=== PATIENT | female | born 1975 | race Asian ===

== ENCOUNTER 2017-03-13 13:49 | Emergency (ER) | payer OTHER ==
[2017-03-13] MEDS ORDERED: DICYCLOMINE 10 MG/ML 2 ML AMP IM STA (14:53)
[2017-03-13] MEDS ORDERED: SODIUM CHLORIDE 0.9% 1,000 ML IV STA (14:53)
[2017-03-13] MEDS ORDERED: ONDANSETRON 4 MG/2 ML VIAL IVP STA (14:53)
--- NOTE | 2017-03-13 14:56 | ED ---
General Adult HPI - General Chief complaint: Nausea/Vomiting/Diarrhea Stated complaint: vomiting/diarrhea/abdominal pain Time Seen by Provider: 03/13/17 14:40 Source: patient, RN notes reviewed Mode of arrival: ambulatory Limitations: no limitations - History of Present Illness Initial comments: 42 yo female presents to the ER with cc of nausea vomiting and diarrhea. 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 Patient states she'll have crampy spasming type pain and then it will improve. Patient states she hasn't had any fever chills with this. Patient states that he has had no other symptoms with this. Patient denies any abdominal surgeries in the past. Patient denies . Patient denies any recent fever, chills , shortness of breath, chest pain, back pain, numbness or tingling, dysuria or hematuria, constipation or diarrhea, headaches or visual changes, or any other current symptoms. - Related Data Home Medications Medication Instructions Recorded Confirmed Fexofenadine/Pseudoephedrine 1 tab PO DAILY PRN 03/13/17 03/13/17 [Brissa-D 24 Hour Tablet] Turmeric Root Extract [Turmeric] 500 mg PO DAILY 03/13/17 03/13/17 Previous Rx's Medication Instructions Recorded Dicyclomine [Bentyl] 10 mg PO TID #20 capsule 03/13/17 Ondansetron Odt [Zofran ODT] 4 mg PO Q8HR PRN #20 tab 03/13/17 Allergies Allergy/AdvReac Type Severity Reaction Status Date / Time alcohol Allergy Unknown Verified 03/13/17 14:52 Sulfa (Sulfonamide Allergy Swelling Verified 03/13/17 14:52 Antibiotics) Review of Systems ROS Statement: Those systems with pertinent positive or pertinent negative responses have been documented in the HPI. ROS Other: All systems not noted in ROS Statement are negative. Past Medical History Additional Past Medical History / Comment(s): ALLERGIC RHINITIS History of Any Multi-Drug Resistant Organisms: None Reported Past Surgical History: No Surgical Hx Reported Past Psychological History: Anxiety Smoking Status: Never smoker Past Alcohol Use History: None Reported Past Drug Use History: None Reported General Exam Limitations: no limitations General appearance: alert, in no apparent distress ENT exam: Present: normal exam, mucous membranes moist Neck exam: Present: normal inspection. Absent: tenderness, meningismus, lymphadenopathy Respiratory exam: Present: normal lung sounds bilaterally. Absent: respiratory distress, wheezes, rales, rhonchi, stridor Cardiovascular Exam: Present: regular rate, normal rhythm, normal heart sounds. Absent: systolic murmur, diastolic murmur, rubs, gallop, clicks GI/Abdominal exam: Present: soft, normal bowel sounds. Absent: distended, tenderness, guarding, rebound, rigid Neurological exam: Present: alert, oriented X3 Psychiatric exam: Present: normal affect, normal mood Skin exam: Present: warm, dry, intact, normal color. Absent: rash Course Vital Signs 03/13/17 13:53 Temperature 97.5 F L Pulse Rate 94 Respiratory 20 Rate Blood Pressure 118/70 O2 Sat by Pulse 98 Oximetry Medical Decision Making - Medical Decision Making 42-year-old female presents to the emergency department with a chief complaint of nausea vomiting and diarrhea. At this time patient's laboratory is reviewed. At this time patient's symptoms are suspicious for a gastroenteritis and she would just recommend facility where this is currently going around. At this time abdomen continues to be soft and nontender. This time we discussed we will start her on nausea meds for home and Bentyl. We discussed return parameters and follow-up and all questions. Patient stated that she understood and she plan. All questions have been answered - Lab Data Result diagrams: 03/13/17 15:25 03/13/17 15:25 Lab Results 03/13/17 03/13/17 03/13/17 Range/Units 15:25 15:25 15:25 WBC 11.6 H (3.8-10.6) k/uL RBC 4.80 (3.80-5.40) m/uL Hgb 13.3 (11.4-16.0) gm/dL Hct 41.6 (34.0-46.0) % MCV 86.7 (80.0-100.0) fL MCH 27.7 (25.0-35.0) pg MCHC 32.0 (31.0-37.0) g/dL RDW 13.6 (11.5-15.5) % Plt Count 305 (150-450) k/uL Neutrophils % 89 % Lymphocytes % 7 % Monocytes % 2 % Eosinophils % 1 % Basophils % 0 % Neutrophils # 10.3 H (1.3-7.7) k/uL Lymphocytes # 0.8 L (1.0-4.8) k/uL Monocytes # 0.3 (0-1.0) k/uL Eosinophils # 0.1 (0-0.7) k/uL Basophils # 0.0 (0-0.2) k/uL Sodium 142 (137-145) mmol/L Potassium 4.0 (3.5-5.1) mmol/L Chloride 108 H (98-107) mmol/L Carbon Dioxide 23 (22-30) mmol/L Anion Gap 11 mmol/L BUN 10 (7-17) mg/dL Creatinine 0.63 (0.52-1.04) mg/dL Est GFR (MDRD) Af Amer >60 (>60 ml/min/1.73 sqM) Est GFR (MDRD) Non-Af >60 (>60 ml/min/1.73 sqM) Glucose 92 (74-99) mg/dL Calcium 9.2 (8.4-10.2) mg/dL Total Bilirubin 0.5 (0.2-1.3) mg/dL AST 22 (14-36) U/L ALT 36 (9-52) U/L Alkaline Phosphatase 77 (38-126) U/L Total Protein 7.3 (6.3-8.2) g/dL Albumin 4.4 (3.5-5.0) g/dL Amylase 59 (30-110) U/L Lipase 45 (23-300) U/L Urine Color Urine Appearance (Clear) Urine pH (5.0-8.0) Ur Specific [place] (1.001-1.035) Urine Protein (Negative) Urine Glucose (UA) (Negative) Urine Ketones (Negative) Urine Blood (Negative) Urine Nitrite (Negative) Urine Bilirubin (Negative) Urine Urobilinogen (<2.0) mg/dL Ur Leukocyte Esterase (Negative) Urine RBC (0-5) /hpf Urine WBC (0-5) /hpf Ur Squamous Epith Cells (0-4) /hpf Urine Mucus (None) /hpf Urine HCG, Qual Not Detected (Not Detectd) 03/13/17 Range/Units 15:25 WBC (3.8-10.6) k/uL RBC (3.80-5.40) m/uL Hgb (11.4-16.0) gm/dL Hct (34.0-46.0) % MCV (80.0-100.0) fL MCH (25.0-35.0) pg MCHC (31.0-37.0) g/dL RDW (11.5-15.5) % Plt Count (150-450) k/uL Neutrophils % % Lymphocytes % % Monocytes % % Eosinophils % % Basophils % % Neutrophils # (1.3-7.7) k/uL Lymphocytes # (1.0-4.8) k/uL Monocytes # (0-1.0) k/uL Eosinophils # (0-0.7) k/uL Basophils # (0-0.2) k/uL Sodium (137-145) mmol/L Potassium (3.5-5.1) mmol/L Chloride (98-107) mmol/L Carbon Dioxide (22-30) mmol/L Anion Gap mmol/L BUN (7-17) mg/dL Creatinine (0.52-1.04) mg/dL Est GFR (MDRD) Af Amer (>60 ml/min/1.73 sqM) Est GFR (MDRD) Non-Af (>60 ml/min/1.73 sqM) Glucose (74-99) mg/dL Calcium (8.4-10.2) mg/dL Total Bilirubin (0.2-1.3) mg/dL AST (14-36) U/L ALT (9-52) U/L Alkaline Phosphatase (38-126) U/L Total Protein (6.3-8.2) g/dL Albumin (3.5-5.0) g/dL Amylase (30-110) U/L Lipase (23-300) U/L Urine Color Yellow Urine Appearance Clear (Clear) Urine pH 6.0 (5.0-8.0) Ur Specific [place] 1.024 (1.001-1.035) Urine Protein Trace H (Negative) Urine Glucose (UA) Negative (Negative) Urine Ketones Trace H (Negative) Urine Blood Trace H (Negative) Urine Nitrite Negative (Negative) Urine Bilirubin Negative (Negative) Urine Urobilinogen <2.0 (<2.0) mg/dL Ur Leukocyte Esterase Negative (Negative) Urine RBC 4 (0-5) /hpf Urine WBC 1 (0-5) /hpf Ur Squamous Epith Cells 14 H (0-4) /hpf Urine Mucus Many H (None) /hpf Urine HCG, Qual (Not Detectd) Disposition Clinical Impression: Nausea & vomiting, Diarrhea Disposition: HOME SELF-CARE Condition: Stable Instructions: Acute Nausea and Vomiting (ED) Additional Instructions: Please use medication as discussed. Please follow up with family doctor if symptoms have not improved over the next two days. Please return to the emergency room if your symptoms increase or worsen or for any other concerns. Prescriptions: Dicyclomine [Bentyl] 10 mg PO TID #20 capsule Ondansetron Odt [Zofran ODT] 4 mg PO Q8HR PRN #20 tab PRN Reason: Nausea Referrals: Sumit Rios MD [Primary Care Provider] - 1-2 days Time of Disposition: 16:47
[2017-03-13 15:44] LABS: Basophils % (A) 0 %; Eosinophils # (A) 0.1 k/uL (0-0.7); Eosinophils % (A) 1 %; HCT 41.6 % (34.0-46.0); HGB 13.3 gm/dL (11.4-16.0); Lymphocytes # (A) 0.8 k/uL (1.0-4.8); Lymphocytes % (A) 7 %; MCH 27.7 pg (25.0-35.0); MCV 86.7 fL (80.0-100.0); Mean Platelet Volume 6.8; Monocytes # (A) 0.3 k/uL (0-1.0); Monocytes % (A) 2 %; Neutrophils # (A) 10.3 k/uL (1.3-7.7); Neutrophils % (A) 89 %; Platelet Count 305 k/uL (150-450); RDW 13.6 % (11.5-15.5); WBC 11.6 k/uL (3.8-10.6)
[2017-03-13 15:48] LABS: Appearance,Urine Clear (Clear); Bilirubin,Urine Negative (Negative); Blood,Urine Trace (Negative); Color,Urine Yellow; Glucose,Urine (UA) Negative (Negative); Ketones,Urine Trace (Negative); Leukocyte Esterase,Urine Negative (Negative); Mucus,Urine Many /hpf; Nitrite,Urine Negative (Negative); Protein,Urine Trace (Negative); RBC,Urine 4 /hpf (0-5); Specific Gravity,Urine 1.024 (1.001-1.035); Squamous Epithelial Cell,Urine 14 /hpf (0-4); Urobilinogen,Urine <2.0 mg/dL (<2.0); WBC,Urine 1 /hpf (0-5)
[2017-03-13 15:58] LABS: ALT 36 U/L (9-52); AST 22 U/L (14-36); Albumin 4.4 g/dL (3.5-5.0); Alkaline Phosphatase 77 U/L (38-126); Amylase 59 U/L (30-110); Anion Gap 11 mmol/L; Blood Urea Nitrogen 10 mg/dL (7-17); Calcium 9.2 mg/dL (8.4-10.2); Carbon Dioxide 23 mmol/L (22-30); Chloride 108 mmol/L (98-107); Glucose 92 mg/dL (74-99); Lipase 45 U/L (23-300); Sodium 142 mmol/L (137-145); Total Bilirubin 0.5 mg/dL (0.2-1.3); Total Protein 7.3 g/dL (6.3-8.2)
[2017-03-13 17:02] VITALS: BP 124/70; PULSE 91; RESP 16; TEMP 97.8
== END 2017-03-13 17:46 | disposition home or self-care (01) ==
LOC: EC 13:49
DX: R11.2 Nausea with vomiting, unspecified (principal); R19.7 Diarrhea, unspecified; Z79.899 Other long term (current) drug therapy; Z88.2 Allergy status to sulfonamides; Z91.09 Other allergy status, other than to drugs and biological substances
CPT/HCPCS: 36415; 80053; 82150; 83690; 85025; 81001; 81025; 99284; 96374; 96361; 96372; J0500; J2405

== ENCOUNTER → 2017-12-26 | Outpatient (CLI) | payer OTHER ==
--- NOTE | 2017-12-26 15:25 | US ---
EXAMINATION TYPE: US thyroid st tissue head/neck DATE OF EXAM: 12/26/2017 COMPARISON: NONE CLINICAL HISTORY: E04.9 goiter. GLAND SIZE: Right Lobe: 5.4 X 1.0 X 1.2 cm Overall Parenchyma: homogenous Left Lobe 5.1 X 0.9 X 1.5 cm Overall Parenchyma: homogeneous Isthmus Thickness: 0.1 cm NODULES RIGHT: # of nodules measured on right: 0 LEFT: # of nodules measured on left: 0 ISTHMUS: # of nodules measured in the isthmus: 0 Bilateral neck scanned, no evidence of lymphadenopathy. Parathyroid area scanned, no obvious abnormal ity seen by ultrasound. Homogeneous normal-sized thyroid without discrete nodule identified on images saved. IMPRESSION: Unremarkable study.
== END | disposition home or self-care (01) ==
LOC: RADUSWWP 14:49
PROVIDERS: ATTEND Family Medicine
DX: E04.9 Nontoxic goiter, unspecified (principal)
CPT/HCPCS: 76536

== ENCOUNTER 2018-01-22 01:46 | Observation (INO) | payer OTHER ==
[2018-01-22] MEDS ORDERED: SODIUM CHLORIDE 0.9% 1,000 ML IV STA (02:04)
--- NOTE | 2018-01-22 02:09 | ED ---
Arrhythmia/Palpitations HPI - General Chief Complaint: Arrhythmia/Palpitations Stated Complaint: Poss Allergic Reaction Time Seen by Provider: 01/22/18 01:54 Source: patient Mode of arrival: ambulatory Limitations: no limitations - History of Present Illness Initial Comments: Ellen is a 43-year-old female with no significant medical history who presents to the emergency department today for evaluation of palpitations. Patient reports she is currently taking Levaquin for a dental infection, she took her sixth dose this evening before bed. Patient reports she was sleeping comfortably when she was woken suddenly around 1 AM with racing heart. Patient reports she feels as though her heart is can of beat out of her chest. Patient reports that when her heart began racing she did feel somewhat tingly all over her body. She denies any shortness of breath, chest pain, nausea, vomiting or any associated symptoms. Patient reports she's never spirits anything like this in the past. She has no known cardiac history. Patient doesn't take any supplements, she denies any recreational drug use, she doesn't drink alcohol, She does occasionally take sinus medication gaining pseudoephedrine however she has not had any in multiple days. - Related Data Home Medications Medication Instructions Recorded Confirmed Fexofenadine/Pseudoephedrine 1 tab PO DAILY PRN 03/13/17 01/22/18 [Brissa-D 24 Hour Tablet] Turmeric Root Extract [Turmeric] 500 mg PO DAILY 03/13/17 01/22/18 Allergies Allergy/AdvReac Type Severity Reaction Status Date / Time alcohol Allergy Unknown Verified 01/22/18 01:51 Sulfa (Sulfonamide Allergy Swelling Verified 01/22/18 01:51 Antibiotics) Review of Systems ROS Statement: Those systems with pertinent positive or pertinent negative responses have been documented in the HPI. ROS Other: All systems not noted in ROS Statement are negative. Past Medical History Additional Past Medical History / Comment(s): ALLERGIC RHINITIS History of Any Multi-Drug Resistant Organisms: None Reported Past Surgical History: No Surgical Hx Reported Past Psychological History: Anxiety Smoking Status: Never smoker Past Alcohol Use History: None Reported Past Drug Use History: None Reported General Exam - General Exam Comments Initial Comments: GENERAL: Patient is well-developed and well-nourished. Patient is nontoxic and well- hydrated and is in no distress. HENT: Normocephalic, Atraumatic. Neck is soft and supple. No significant lymphadenopathy is noted. Oropharynx is clear. Moist mucous membranes. Neck has full range of motion without eliciting any pain. EYES: The sclera were anicteric and conjunctiva were pink and moist. Extraocular movements were intact and pupils were equal round and reactive to light. Eyelids were unremarkable. PULMONARY: Unlabored respirations. Good breath sounds bilaterally. No audible rales rhonchi or wheezing was noted. CARDIOVASCULAR: There is a regular rate and rhythm without any murmurs gallops or rubs. ABDOMEN: Soft and nontender with normal bowel sounds. SKIN: Skin is clear with no lesions or rashes and otherwise unremarkable. NEUROLOGIC: Patient is alert and oriented x3. Cranial nerves II through XII are grossly intact. Motor and sensory are also intact. Normal speech, volume and content. Symmetrical smile. MUSCULOSKELETAL: Normal extremities with adequate strength and full range of motion. No lower extremity swelling or edema. No calf tenderness. LYMPHATICS: No significant lymphadenopathy is noted PSYCHIATRIC: Normal psychiatric evaluation. Limitations: no limitations Limitations: no limitations Course Vital Signs 01/22/18 01:47 Temperature 98.4 F Pulse Rate 100 Respiratory 22 Rate Blood Pressure 147/103 O2 Sat by Pulse 99 Oximetry EKG Findings - EKG Comments: EKG Findings:: Kathrin EKG obtained at 1:59 AM, rate is 98, rhythm is sinus, normal axis, normal intervals, ND 132, QRS 90, QTc 459. There are no acute ST elevations or depressions no evidence of acute ischemia or infarction. Repeat EKG was obtained as the patient was having tachycardia on the monitor with a heart rate of 140, however by the time the EKG was obtained heart rate had improved to 94. This EKG was obtained at 3:44 AM, rate was again sinus with PVCs, ND remained 132, QRS 98, QTC 465, again no significant ST elevations or depressions no evidence of acute ischemia or infarction. Medical Decision Making - Medical Decision Making Patient was seen and evaluated, history was obtained from the patient Severity well-appearing 43-year-old female with palpitations initial EKG is sinus rhythm, labs and EKG were ordered Labs reveal an elevated d-dimer level, CT pulmonary embolism study was ordered Labs also have an elevated TSH suggestive of hypothyroid which is not consistent with tachydysrhythmia Patient resting comfortably in bed, nearly nodding off when she was noted to become tachycardic with a heart rate of 134-141 on the monitor Repeat EKG was obtained, by the time the EKG was obtained her heart rate had decreased back down to 94 did have frequent PVCs Patient remained comfortably resting in her bed when she had another episode of tachycardia with a heart rate in the 140s which was observed on the monitor Patient care was discussed with Dr. king who recommends patient be started on low-dose beta angeli and admitted to the hospital for cardiac observation patient was agreeable to this Patient care was discussed with Dr. Johnson who accepts the admission with consult to cardiology - Lab Data Result diagrams: 01/22/18 02:10 01/22/18 02:10 Lab Results 01/22/18 01/22/18 01/22/18 Range/Units 02:10 02:10 02:10 WBC 10.8 H (3.8-10.6) k/uL RBC 4.98 (3.80-5.40) m/uL Hgb 13.5 (11.4-16.0) gm/dL Hct 41.8 (34.0-46.0) % MCV 83.9 (80.0-100.0) fL MCH 27.2 (25.0-35.0) pg MCHC 32.4 (31.0-37.0) g/dL RDW 12.6 (11.5-15.5) % Plt Count 353 (150-450) k/uL Neutrophils % 62 % Lymphocytes % 29 % Monocytes % 4 % Eosinophils % 3 % Basophils % 0 % Neutrophils # 6.7 (1.3-7.7) k/uL Lymphocytes # 3.1 (1.0-4.8) k/uL Monocytes # 0.5 (0-1.0) k/uL Eosinophils # 0.3 (0-0.7) k/uL Basophils # 0.0 (0-0.2) k/uL PT (9.0-12.0) sec INR (<1.2) APTT (22.0-30.0) sec D-Dimer 0.77 H (<0.60) mg/L FEU Sodium 139 (137-145) mmol/L Potassium 3.7 (3.5-5.1) mmol/L Chloride 106 (98-107) mmol/L Carbon Dioxide 22 (22-30) mmol/L Anion Gap 11 mmol/L BUN 16 (7-17) mg/dL Creatinine 0.81 (0.52-1.04) mg/dL Est GFR (CKD-EPI)AfAm >90 (>60 ml/min/1.73 sqM) Est GFR (CKD-EPI)NonAf >90 (>60 ml/min/1.73 sqM) Glucose 110 H (74-99) mg/dL Calcium 10.6 H (8.4-10.2) mg/dL Magnesium 2.1 (1.6-2.3) mg/dL Total Bilirubin 0.3 (0.2-1.3) mg/dL AST 22 (14-36) U/L ALT 26 (9-52) U/L Alkaline Phosphatase 64 (38-126) U/L Troponin I (0.000-0.034) ng/mL Total Protein 7.5 (6.3-8.2) g/dL Albumin 4.5 (3.5-5.0) g/dL TSH 4.860 H (0.465-4.680) mIU/L 01/22/18 01/22/18 01/22/18 Range/Units 02:10 02:10 02:10 WBC (3.8-10.6) k/uL RBC (3.80-5.40) m/uL Hgb (11.4-16.0) gm/dL Hct (34.0-46.0) % MCV (80.0-100.0) fL MCH (25.0-35.0) pg MCHC (31.0-37.0) g/dL RDW (11.5-15.5) % Plt Count (150-450) k/uL Neutrophils % % Lymphocytes % % Monocytes % % Eosinophils % % Basophils % % Neutrophils # (1.3-7.7) k/uL Lymphocytes # (1.0-4.8) k/uL Monocytes # (0-1.0) k/uL Eosinophils # (0-0.7) k/uL Basophils # (0-0.2) k/uL PT 9.6 (9.0-12.0) sec INR 1.0 (<1.2) APTT 24.3 (22.0-30.0) sec D-Dimer (<0.60) mg/L FEU Sodium (137-145) mmol/L Potassium (3.5-5.1) mmol/L Chloride (98-107) mmol/L Carbon Dioxide (22-30) mmol/L Anion Gap mmol/L BUN (7-17) mg/dL Creatinine (0.52-1.04) mg/dL Est GFR (CKD-EPI)AfAm (>60 ml/min/1.73 sqM) Est GFR (CKD-EPI)NonAf (>60 ml/min/1.73 sqM) Glucose (74-99) mg/dL Calcium (8.4-10.2) mg/dL Magnesium 2.1 (1.6-2.3) mg/dL Total Bilirubin (0.2-1.3) mg/dL AST (14-36) U/L ALT (9-52) U/L Alkaline Phosphatase (38-126) U/L Troponin I <0.012 (0.000-0.034) ng/mL Total Protein (6.3-8.2) g/dL Albumin (3.5-5.0) g/dL TSH (0.465-4.680) mIU/L Disposition Clinical Impression: Tachycardia, Palpitations Disposition: ADMITTED IP TO THIS HOSP Condition: Stable Referrals: Taylor Ballesteros MD [Primary Care Provider] - 1-2 days
[2018-01-22 02:22] LABS: Basophils % (A) 0 %; Eosinophils # (A) 0.3 k/uL (0-0.7); Eosinophils % (A) 3 %; HCT 41.8 % (34.0-46.0); HGB 13.5 gm/dL (11.4-16.0); Lymphocytes # (A) 3.1 k/uL (1.0-4.8); Lymphocytes % (A) 29 %; MCH 27.2 pg (25.0-35.0); MCHC 32.4 g/dL (31.0-37.0); MCV 83.9 fL (80.0-100.0); Mean Platelet Volume 6.1; Monocytes # (A) 0.5 k/uL (0-1.0); Monocytes % (A) 4 %; Neutrophils # (A) 6.7 k/uL (1.3-7.7); Neutrophils % (A) 62 %; Platelet Count 353 k/uL (150-450); RBC 4.98 m/uL (3.80-5.40); RDW 12.6 % (11.5-15.5); WBC 10.8 k/uL (3.8-10.6)
[2018-01-22 02:33] LABS: ALT 26 U/L (9-52); AST 22 U/L (14-36); Albumin 4.5 g/dL (3.5-5.0); Alkaline Phosphatase 64 U/L (38-126); Anion Gap 11 mmol/L; Blood Urea Nitrogen 16 mg/dL (7-17); Calcium 10.6 mg/dL (8.4-10.2); Carbon Dioxide 22 mmol/L (22-30); Chloride 106 mmol/L (98-107); Glucose 110 mg/dL (74-99); Magnesium 2.1 mg/dL (1.6-2.3); Potassium 3.7 mmol/L (3.5-5.1); Sodium 139 mmol/L (137-145); Total Bilirubin 0.3 mg/dL (0.2-1.3); Total Protein 7.5 g/dL (6.3-8.2)
--- NOTE | 2018-01-22 02:39 | XR ---
EXAMINATION TYPE: XR chest 2V DATE OF EXAM: 01/22/2018 COMPARISON: 04/14/2015 HISTORY: Dysrhythmia palpitations TECHNIQUE: Frontal and lateral views of the chest are obtained. FINDINGS: Heart and mediastinum are normal. Lungs are clear. Diaphragm is normal. Bony thorax is int act. Pulmonary vascularity is normal. There is no pleural effusion. There are chest leads. IMPRESSION: Normal chest. No change.
[2018-01-22 02:58] LABS: Partial Thromboplastin Time 24.3 sec (22.0-30.0); Prothrombin Time 9.6 sec (9.0-12.0)
--- NOTE | 2018-01-22 03:23 | CT ---
EXAMINATION TYPE: CT chest angio for PE DATE OF EXAM: 01/22/2018 COMPARISON: None HISTORY: chest pain CT DLP: 210.6 mGycm Automated exposure control for dose reduction was used. CONTRAST: CT Chest for pulmonary embolism performed with with IV Contrast, patient injected with 70mL mL of Iso gloria 370. FINDINGS: There are 3-D post processed images. The lungs are clear of infiltrate. There is no pleural effusion. There is no evidence of a pulmonary mass. There is no mediastinal adenopathy. Thoracic aorta appears intact. There is no evidence of aneu rysm or dissection. Heart size is normal. There is no pericardial effusion. There are no hilar masses . There is normal contrast opacification of the pulmonary arteries. I see no filling defect. There is no evidence of thoracic compression fracture. There is mild thoracic dextroscoliosis. I see no bony destructive process. IMPRESSION: Mild thoracic dextroscoliosis. No evidence of pulmonary embolism.
[2018-01-22] MEDS ORDERED: METOPROLOL TARTRATE 25 MG TAB PO STA (05:17)
[2018-01-22 06:22] VITALS: RESP 18
[2018-01-22 07:27] VITALS: BMI 20.5
--- NOTE | 2018-01-22 08:09 | P.CRDCN ---
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 Patient also states that she has a family history of coronary artery disease in her father but she is unsure exactly of what his history is. She has been taking Levaquin for the past 6 days because she is scheduled to have oral surgery. She woke up at 1 AM this morning with symptoms of numbness and tingling in her entire body. She states that she felt her heart racing fast and palpitating. She had several episodes of this and for this reason she came to the emergency room for further evaluation. Chest x-ray normal. EKG on arrival here showed a normal sinus rhythm with occasional PVCs and ST-T wave changes noted in the anterior leads. CTA of the chest revealed mild thoracic dextroscoliosis. No PE. Blood pressure 156/80, heart rate in the 90s, 98% on room air. White blood cell count 10.8, hemoglobin 13.5, platelet count 353. D-dimer 0.77, sodium 139, potassium 3.7, BUN 16, creatinine 0.8. Calcium 10.6. Troponin 0.012. TSH level 4.8. At the time of my examination this morning, patient feels well, no palpitations at present but she does state to the night last night that she had several episodes of feeling her heart racing fast. Past Medical History Additional Past Medical History / Comment(s): ALLERGIC RHINITIS History of Any Multi-Drug Resistant Organisms: None Reported Past Surgical History: No Surgical Hx Reported Past Anesthesia/Blood Transfusion Reactions: No Reported Reaction Past Psychological History: Anxiety Smoking Status: Never smoker Past Alcohol Use History: None Reported Past Drug Use History: None Reported Medications and Allergies Home Medications Medication Instructions Recorded Confirmed Type Fexofenadine/Pseudoephedrine 1 tab PO DAILY PRN 03/13/17 01/22/18 History [Brissa-D 24 Hour Tablet] Turmeric Root Extract [Turmeric] 500 mg PO DAILY 03/13/17 01/22/18 History Allergies Allergy/AdvReac Type Severity Reaction Status Date / Time alcohol Allergy Unknown Verified 01/22/18 01:51 Sulfa (Sulfonamide Allergy Swelling Verified 01/22/18 01:51 Antibiotics) Physical Exam Vitals: Vital Signs Temp Pulse Pulse Resp BP BP Pulse Ox 01/22/18 07:53 91 01/22/18 07:34 98.6 F 91 18 156/81 98 01/22/18 06:10 98.2 F 18 01/22/18 05:37 85 19 120/82 97 01/22/18 01:47 98.4 F 100 22 147/103 99 Intake and Output 01/21/18 01/22/18 01/22/18 22:59 06:59 14:59 Other: Weight 59.421 kg PHYSICAL EXAMINATION: GENERAL: 43-year-old female in no acute distress at the time of my examination HEENT: Head is atraumatic, normocephalic. Pupils equal, round. Sclera anicteric. Conjunctiva are clear. Mucous membranes of the mouth are moist. Neck is supple. There is no elevated jugular venous pressure. No carotid bruit is heard. HEART EXAMINATION: Heart S1, S2 normal. No murmur or gallop heard. CHEST EXAMINATION: Lungs are clear to auscultation and precussion. No chest wall tenderness is noted on palpation or with deep breathing. ABDOMEN: Soft, nontender. Bowel sounds are heard. No organomegaly noted. EXTREMITIES: 2+ peripheral pulses with no evidence of peripheral edema and no calf tenderness noted. NEUROLOGIC patient is awake, alert and oriented 3 . . Results 01/22/18 02:10 01/22/18 02:10 Cardiac Enzymes 01/22/18 01/22/18 Range/Units 02:10 02:10 AST 22 (14-36) U/L Troponin I <0.012 (0.000-0.034) ng/mL Coagulation 01/22/18 Range/Units 02:10 PT 9.6 (9.0-12.0) sec APTT 24.3 (22.0-30.0) sec CBC 01/22/18 Range/Units 02:10 WBC 10.8 H (3.8-10.6) k/uL RBC 4.98 (3.80-5.40) m/uL Hgb 13.5 (11.4-16.0) gm/dL Hct 41.8 (34.0-46.0) % Plt Count 353 (150-450) k/uL Comprehensive Metabolic Panel 01/22/18 Range/Units 02:10 Sodium 139 (137-145) mmol/L Potassium 3.7 (3.5-5.1) mmol/L Chloride 106 (98-107) mmol/L Carbon Dioxide 22 (22-30) mmol/L BUN 16 (7-17) mg/dL Creatinine 0.81 (0.52-1.04) mg/dL Glucose 110 H (74-99) mg/dL Calcium 10.6 H (8.4-10.2) mg/dL AST 22 (14-36) U/L ALT 26 (9-52) U/L Alkaline Phosphatase 64 (38-126) U/L Total Protein 7.5 (6.3-8.2) g/dL Albumin 4.5 (3.5-5.0) g/dL Intake and Output 01/21/18 01/22/18 01/22/18 22:59 06:59 14:59 Other: Weight 59.421 kg 01/22/18 02:10 01/22/18 02:10 EKG Interpretations (text) EKG shows normal sinus rhythm with occasional PVCs and ST-T wave changes noted in the anterior leads Assessment and Plan Plan: Assessment and plan #1 symptoms of palpitations with associated generalized numbness and tingling, EKG shows normal sinus rhythm with occasional PAC and ST-T wave changes noted in the anterior leads. Troponins negative times one. TSH 4.8. #2 recent course of Levaquin for upcoming oral surgery #3 ALLERGIC rhinitis, on Brissa-D daily Plan We will obtain an echocardiogram with Doppler study. Continue to monitor for any significant arrhythmias. We will recommend the patient undergo stress testing today as well. Further recommendations to follow. DNP note has been reviewed, I agree with a documented findings and plan of care. Patient was seen and examined.
[2018-01-22] MEDS ORDERED: METOPROLOL TARTRATE 25 MG TAB PO SCH (11:00)
[2018-01-22 12:09] VITALS: BP 147/77; PULSE 76; TEMP 98.2
--- NOTE | 2018-01-22 13:13 | P.HPIM ---
History of Present Illness H&P Date: 01/22/18 Chief Complaint: Palpitations, numbness and tingling HISTORY AND PHYSICAL AND DISCHARGE SUMMARY: This is a 43-year-old female patient of Dr. Ballesteros with past medical history of seasonal ALLERGIES. She is currently on Levaquin for tooth abscess and his appointment with Dr. Palomares tomorrow for surgical intervention. She states she had sudden onset of one in the morning of numbness into going all over with generalized weakness and palpitations and felt like her whole-body shaking. It lasted for a few seconds and then went away but returned. She denies any chest pain or shortness of breath. No fever no chills. No cough or shortness of breath no sore throat. Patient is concerned that her symptoms are related to Levaquin. Patient came into [facility] emergency center for evaluation. CTA of the chest showed mild thoracic dextroscoliosis. No PE. Chest x-ray showed no acute findings. EKG was sinus rhythm with occasional PVCs troponin negative on 2 draws, TSH 4.8, creatinine 0.8, d-dimer 0.77. Patient was given 1 dose of Lopressor 12.5 mg in the ER and placed on the cardiac stepdown unit and cardiology consult requested. Patient has been seen by cardiology and echocardiogram ordered. Echocardiogram reveals EF of 55-60%, mild mitral regurgitation, mild tricuspid regurgitation. Review of Systems All systems: negative Constitutional: Reports weakness, Denies anorexia, Denies chills, Denies daytime sleepiness, Denies fatigue, Denies fever, Denies lethargy, Denies malaise, Denies poor appetite, Denies sweats, Denies weight gain, Denies weight loss Eyes: denies blurred vision, denies pain Ears, nose, mouth and throat: Denies dysphagia, Denies headache, Denies mouth pain, Denies sore throat Cardiovascular: Reports palpitations, Denies chest pain, Denies decreased exercise tolerance, Denies dyspnea on exertion, Denies edema, Denies lightheadedness, Denies shortness of breath, Denies syncope Respiratory: Denies congestion, Denies cough, Denies cough with sputum, Denies dyspnea, Denies excessive sputum, Denies hemoptysis, Denies home oxygen, Denies wheezing Gastrointestinal: Denies abdominal pain, Denies diarrhea, Denies loss of appetite, Denies melena, Denies nausea, Denies vomiting Genitourinary: Denies dysuria, Denies hematuria, Denies urgency, Denies urinary frequency Musculoskeletal: Denies frequent falls, Denies gait dysfunction, Denies low back pain, Denies myalgias Integumentary: Denies pruritus, Denies rash, Denies wounds Neurological: Denies aphasia, Denies balance difficulties, Denies change in mentation, Denies confusion, Denies head injury, Denies headaches, Denies numbness, Denies seizures, Denies weakness Psychiatric: Denies anxiety, Denies depression Endocrine: Denies fatigue, Denies weight change Past Medical History Additional Past Medical History / Comment(s): ALLERGIC RHINITIS History of Any Multi-Drug Resistant Organisms: None Reported Past Surgical History: No Surgical Hx Reported Past Anesthesia/Blood Transfusion Reactions: No Reported Reaction Past Psychological History: Anxiety Smoking Status: Never smoker Past Alcohol Use History: None Reported Past Drug Use History: None Reported Medications and Allergies Home Medications Medication Instructions Recorded Confirmed Type Fexofenadine/Pseudoephedrine 1 tab PO DAILY PRN 03/13/17 01/22/18 History [Brissa-D 24 Hour Tablet] Turmeric Root Extract [Turmeric] 500 mg PO HS 03/13/17 01/22/18 History Acetaminophen Tab [Tylenol] 650 mg PO DAILY PRN 01/22/18 01/22/18 History Cholecalciferol (Vitamin D3) 2,000 unit PO HS 01/22/18 01/22/18 History [Vitamin D3] Ibuprofen [Motrin Ib] 400 mg PO DAILY PRN 01/22/18 01/22/18 History Metoprolol Tartrate [Lopressor] 25 mg PO BID #60 tab 01/22/18 Rx Allergies Allergy/AdvReac Type Severity Reaction Status Date / Time alcohol Allergy Unknown Verified 01/22/18 08:33 cefuroxime [From Ceftin] Allergy Verified 01/22/18 08:33 levofloxacin [From Levaquin] Allergy Verified 01/22/18 08:33 Sulfa (Sulfonamide Allergy Swelling Verified 01/22/18 08:33 Antibiotics) Physical Exam Vitals: Vital Signs Temp Pulse Pulse Resp BP BP Pulse Ox 01/22/18 07:53 91 01/22/18 07:34 98.6 F 91 18 156/81 98 12/05/18 06:10 98.2 F 18 12/05/18 05:37 85 19 120/82 97 01/22/18 01:47 98.4 F 100 22 147/103 99 Intake and Output 01/21/18 01/22/18 01/22/18 22:59 06:59 14:59 Other: Weight 59.421 kg Gen: This is a 43-year-old female. She is sitting up in bed appears to be comfortable and in no acute distress. HEENT: Head is atraumatic, normocephalic. Pupils equal, round. Sclerae is anicteric. NECK: Supple. No JVD. No lymphadenopathy. No thyromegaly. LUNGS: Clear to auscultation. No wheezes or rhonchi. No intercostal retractions. HEART: Regular rate and rhythm. No murmur. ABDOMEN: Soft. Bowel sounds are present. No masses. No tenderness. EXTREMITIES: No pedal edema. No calf tenderness. NEUROLOGICAL: Patient is awake, alert and oriented x3. Cranial nerves 2 through 12 are grossly intact. Results CBC & Chem 7: 01/22/18 02:10 01/22/18 02:10 Labs: Abnormal Lab Results - Last 24 Hours (Table) 01/22/18 01/22/18 01/22/18 Range/Units 02:10 02:10 02:10 WBC 10.8 H (3.8-10.6) k/uL D-Dimer 0.77 H (<0.60) mg/L FEU Glucose 110 H (74-99) mg/dL Calcium 10.6 H (8.4-10.2) mg/dL TSH 4.860 H (0.465-4.680) mIU/L Thrombosis Risk Factor Assmnt - Choose All That Apply Any of the Below Risk Factors Present?: Yes Each Factor Represents 1 point: Age 41-60 years Other Risk Factors: No Thrombosis Risk Factor Assessment Total Risk Factor Score: 1 Thrombosis Risk Factor Assessment Level: Low Risk Assessment and Plan Plan: 1. Palpitations with sensation of numbness and tingling all over her body. Cardiology consult appreciated. Echocardiogram. Holter monitor to be obtained. Metoprolol started. 2. Tooth abscess for which she has been on Levaquin. Patient is concerned that her above symptoms are related to Levaquin. Levaquin will place on hold. She does have a appointment tomorrow with Dr. Swan.. 3. Seasonal ALLERGIES. Patient has been instructed to avoid Brissa-D. Patient placed as an observation status. Discharge plan: Return home Impression and plan of care have been directed as dictated by the signing physician. Tiara Abbasi nurse practitioner acting as scribe for signing physician.
--- NOTE | 2018-01-22 14:28 | ECHOF ---
Referral Reason:palpitations MEASUREMENTS -------- HEIGHT: 170.2 cm WEIGHT: 59.4 kg BP: 158/8 RVIDd: 2.9 cm (< 3.3) IVSd: 1.0 cm (0.6 - 1.1) LVIDd: 3.9 cm (3.9 - 5.3) LVPWd: 1.1 cm (0.6 - 1.1) IVSs: 1.5 cm LVIDs: 2.6 cm LVPWs: 1.4 cm LA Diam: 3.1 cm (2.7 - 3.8) LAESV Index (A-L): 16.86 ml/m Ao Diam: 3.0 cm (2.0 - 3.7) AV Cusp: 2.1 cm (1.5 - 2.6) MV EXCURSION: 17.614 mm (> 18.000) MV EF SLOPE: 68 mm/s (70 - 150) EPSS: 0.7 cm MV E Dante: 0.79 m/s MV DecT: 293 ms MV A Dante: 0.73 m/s MV E/A Ratio: 1.08 FINDINGS -------- Sinus rhythm. This was a technically good study. The left ventricular size is normal. Left ventricular wall thickness is normal. Overall left vent ricular systolic function is normal with, an EF between 55 - 60 %. The right ventricle is normal in size. Normal LA size by volume 22+/-6 ml/m2. The right atrium is normal in size. The aortic valve is trileaflet and appears structurally normal. The mitral valve is normal. There is trace to mild mitral regurgitation. The tricuspid valve appears structurally normal. Mild tricuspid regurgitation present. Trace/mild (physiologic) pulmonic regurgitation. The aortic root size is normal. Normal inferior vena cava with normal inspiratory collapse consistent with estimated right atrial pre ssure of 5 mmHg. There is no pericardial effusion. CONCLUSIONS -------- 1. Sinus rhythm. 2. This was a technically good study. 3. The left ventricular size is normal. 4. Left ventricular wall thickness is normal. 5. Overall left ventricular systolic function is normal with, an EF between 55 - 60 %. 6. Normal LA size by volume 22+/-6 ml/m2. 7. The aortic valve is trileaflet and appears structurally normal. 8. The mitral valve is normal. 9. There is trace to mild mitral regurgitation. 10. The tricuspid valve appears structurally normal. 11. Mild tricuspid regurgitation present. 12. Trace/mild (physiologic) pulmonic regurgitation. 13. The aortic root size is normal. 14. Normal inferior vena cava with normal inspiratory collapse consistent with estimated right atrial pressure of 5 mmHg. 15. There is no pericardial effusion. SOLID WASTE COLLECTOR: Alisia Huerta RDCS
== END 2018-01-22 14:54 | disposition home or self-care (01) ==
LOC: EC 01:46 → 3SCARD 05:33
PROVIDERS: ADMIT Internal Medicine Geriatric Medicine; ATTEND Internal Medicine Geriatric Medicine
DX: R00.2 Palpitations (principal); R20.0 Anesthesia of skin; R20.2 Paresthesia of skin; R00.0 Tachycardia, unspecified; R53.1 Weakness; K04.7 Periapical abscess without sinus; J30.2 Other seasonal allergic rhinitis; R79.89 Other specified abnormal findings of blood chemistry; R94.6 Abnormal results of thyroid function studies; I49.3 Ventricular premature depolarization; Z88.2 Allergy status to sulfonamides; Z91.048 Other nonmedicinal substance allergy status; Z82.49 Family history of ischemic heart disease and other diseases of the circulatory system
CPT/HCPCS: 96360; 99285; 36415; 93005; 93306; 85379; 80053; 83735; 84443; 84484; 85025; 85610; 85730; 71046; 71275; G0378; Q9967

== ENCOUNTER 2018-04-25 12:53 | Emergency (ER) | payer OTHER ==
[2018-04-25 12:58] VITALS: BP 131/87; PULSE 82; TEMP 98.7
[2018-04-25 13:09] VITALS: RESP 20
--- NOTE | 2018-04-25 13:09 | ED ---
General Adult HPI - General Chief complaint: Recheck/Abnormal Lab/Rx Stated complaint: Poss Flu Time Seen by Provider: 04/25/18 13:01 Source: patient, RN notes reviewed Mode of arrival: ambulatory Limitations: no limitations - History of Present Illness Initial comments: 43-year-old female presents emergency Department with chief complaint of possible influenza. Patient states she works at [employer] on the [place]. Patient's states that there is a large outbreak of and ones a at the place. Patient is requested by her work to have influenza swab. Patient reports fever yesterday but no current fever. Patient denies any bodyaches currently she did have bodyaches, cough, runny nose. - Related Data Home Medications Medication Instructions Recorded Confirmed Fexofenadine/Pseudoephedrine 1 tab PO DAILY 03/13/17 04/25/18 [Brissa-D 24 Hour Tablet] Turmeric Root Extract [Turmeric] 500 mg PO HS 03/13/17 04/25/18 Acetaminophen Tab [Tylenol] 650 mg PO DAILY PRN 01/22/18 04/25/18 Cholecalciferol (Vitamin D3) 2,000 unit PO HS 01/22/18 04/25/18 [Vitamin D3] Ibuprofen [Motrin Ib] 400 mg PO DAILY PRN 01/22/18 04/25/18 Triamcinolone Acetonide [Nasacort] 1 spray EA NOSTRIL TID 04/25/18 04/25/18 Previous Rx's Medication Instructions Recorded Metoprolol Tartrate [Lopressor] 25 mg PO BID #60 tab 01/22/18 Allergies Allergy/AdvReac Type Severity Reaction Status Date / Time alcohol Allergy Unknown Verified 04/25/18 13:16 cefuroxime [From Ceftin] Allergy Diarrhea Verified 04/25/18 13:16 levofloxacin [From Levaquin] Allergy Unknown Verified 04/25/18 13:16 Sulfa (Sulfonamide Allergy Swelling Verified 04/25/18 13:16 Antibiotics) Review of Systems ROS Statement: Those systems with pertinent positive or pertinent negative responses have been documented in the HPI. ROS Other: All systems not noted in ROS Statement are negative. Past Medical History Past Medical History: No Reported History Additional Past Medical History / Comment(s): ALLERGIC RHINITIS History of Any Multi-Drug Resistant Organisms: None Reported Past Surgical History: No Surgical Hx Reported Past Anesthesia/Blood Transfusion Reactions: No Reported Reaction Past Psychological History: Anxiety Smoking Status: Never smoker Past Alcohol Use History: None Reported Past Drug Use History: None Reported General Exam Limitations: no limitations General appearance: alert, in no apparent distress Head exam: Present: atraumatic, normocephalic, normal inspection Eye exam: Present: normal appearance, PERRL, EOMI. Absent: scleral icterus, conjunctival injection, periorbital swelling ENT exam: Present: normal exam, normal oropharynx, mucous membranes moist, TM's normal bilaterally, normal external ear exam Neck exam: Present: normal inspection, full ROM. Absent: tenderness, meningismus, lymphadenopathy Respiratory exam: Present: normal lung sounds bilaterally. Absent: respiratory distress, wheezes, rales, rhonchi, stridor Cardiovascular Exam: Present: regular rate, normal rhythm, normal heart sounds. Absent: systolic murmur, diastolic murmur, rubs, gallop, clicks Neurological exam: Present: alert, oriented X3, CN II-XII intact Skin exam: Present: warm, dry, intact, normal color. Absent: rash Course Vital Signs 04/25/18 04/25/18 12:54 13:06 Temperature 98.7 F Pulse Rate 82 Respiratory 18 20 Rate Blood Pressure 131/87 O2 Sat by Pulse 98 Oximetry Medical Decision Making - Medical Decision Making 43-year-old female presents for influenza testing. Patient's influenza A positive. Patient will given a return to work note and return parameters were discussed. Disposition Clinical Impression: Influenza A Disposition: HOME SELF-CARE Condition: Stable Instructions (If sedation given, give patient instructions): Influenza (ED) Additional Instructions: Please return to the Emergency Department if symptoms worsen or any other concerns. Is patient prescribed a controlled substance at d/c from ED?: No Referrals: Taylor Ballesteros MD [Primary Care Provider] - 1-2 days Time of Disposition: 13:34
== END 2018-04-25 13:46 | disposition home or self-care (01) ==
LOC: EC 12:53
DX: J10.1 Influenza due to other identified influenza virus with other respiratory manifestations (principal); Z79.899 Other long term (current) drug therapy; Z88.1 Allergy status to other antibiotic agents; Z88.2 Allergy status to sulfonamides; Z91.09 Other allergy status, other than to drugs and biological substances
CPT/HCPCS: 87502; 99283

== ENCOUNTER → 2020-02-24 | Outpatient (CLI) | payer OTHER ==
[2020-02-24 08:57] LABS: Basophils % (A) 0 %; Eosinophils # (A) 0.1 k/uL (0-0.7); Eosinophils % (A) 1 %; HCT 41.4 % (34.0-46.0); HGB 13.5 gm/dL (11.4-16.0); Lymphocytes # (A) 1.3 k/uL (1.0-4.8); Lymphocytes % (A) 7 %; MCH 28.1 pg (25.0-35.0); MCHC 32.7 g/dL (31.0-37.0); MCV 86.1 fL (80.0-100.0); Mean Platelet Volume 6.5; Monocytes # (A) 0.4 k/uL (0-1.0); Monocytes % (A) 2 %; Neutrophils # (A) 15.2 k/uL (1.3-7.7); Neutrophils % (A) 89 %; Platelet Count 376 k/uL (150-450); RBC 4.81 m/uL (3.80-5.40); WBC 17.1 k/uL (3.8-10.6)
--- NOTE | 2020-02-24 09:27 | XR ---
EXAMINATION TYPE: XR chest 2V DATE OF EXAM: 02/24/2020 COMPARISON: Chest x-ray and CTA chest January 22, 2018 HISTORY: Fatigue and cough. Covid -positive January 20. TECHNIQUE: Frontal and lateral views of the chest are obtained. FINDINGS: Symmetric round opacities mid to lower lungs laterally likely correspond to patient nipples . There is no suspicious focal air space opacity, pleural effusion, or pneumothorax seen currently. The cardiac silhouette size remains within normal limits. Underlying scoliotic curvature is present. IMPRESSION: No acute pulmonary process.
[2020-02-24 16:33] LABS: % Iron Saturation 14.73 (12.00-45.00); Albumin 4.9 g/dL (3.80-4.90); Albumin/Globulin Ratio 2.04 (1.60-3.17); Anion Gap 7.4 mmol/L (4.00-12.00); Calcium 9.6 mg/dL (8.7-10.3); Carbon Dioxide 23.6 mmol/L (21.6-31.8); Globulin 2.4 g/dL (1.6-3.3); Magnesium 2.1 mg/dL (1.5-2.4); Non-African American GFR(CKD) 106.1 (60.0-200.0); Potassium 4.2 mmol/L (3.5-5.5); Total Bilirubin 0.2 mg/dL (0.2-1.2); Total Protein 7.3 g/dL (6.2-8.2)
[2020-02-24 16:41] LABS: T4, Free (Free Thyroxine) 0.9 ng/dL (0.80-1.80)
[2020-02-24 17:49] LABS: Hemoglobin A1C 5.6 % (4.0-6.0)
== END | disposition home or self-care (01) ==
LOC: LABWHC1 08:39
PROVIDERS: ATTEND Family Medicine
DX: U07.1 COVID-19 (principal); R25.2 Cramp and spasm; R06.02 Shortness of breath
CPT/HCPCS: 36415; 71046; 80053; 82550; 82607; 82785; 83036; 83540; 83550; 83735; 84439; 84443; 85025; 85379

== ENCOUNTER → 2021-11-30 | Outpatient (CLI) | payer BC ==
--- NOTE | 2021-11-30 14:28 | CT ---
EXAMINATION: CT ABDOMEN AND PELVIS WITH IV CONTRAST DATE OF EXAMINATION: 12/31/2021. COMPARISON: None available. INDICATION: Right lower quadrant abdominal swelling. PROCEDURE: Axial CT of the abdomen and pelvis was performed with contrast and sagittal and coronal reformatted images were performed. CT dose lowering techniques were used, to include: automated expos ure control, adjustment for patient size, and/or use of iterative reconstruction. 100 mL of Isovue-30 0 was given intravenously. FINDINGS: LOWER CHEST : The visualized lung bases are clear. There are no pleural or pericardial effusions. ABDOMEN: Liver and Biliary system: There is a subcentimeter hypodensity right lobe of liver that is too small to fully characterize. The liver otherwise appears unremarkable. Adrenal glands: Normal. Kidneys and ureters: Normal. Spleen: Normal. Pancreas: Normal. Gallbladder: Normal. Lymph nodes, Peritoneum and mesentery: There is no mesenteric or retroperitoneal lymphadenopathy. Gastrointestinal tract: There are no dilated loops of bowel or free intraperitoneal air. The appe ndix is normal. Aorta/IVC: No aortic aneurysm. IVC normal. Abdominal wall: Normal. PELVIS: Fluid: There is no free fluid in the pelvis. Lymph Nodes: There is no pelvic or inguinal lymphadenopathy.. Urinary bladder: Normal. BONES: There are no osseous destructive lesions.. ADDITIONAL SIGNIFICANT FINDINGS: A large mass in the posterior body of the uterus measuring 8.9 cm in diameter which is a fibroid. Severe to be intramural in location.. IMPRESSION: 1. No acute process seen within the abdomen or pelvis. 2. No bowel obstruction or appendicitis. 3. Probable large uterine fibroid. This could be confirmed by ultrasound or MRI if indicated.
--- NOTE | 2021-11-30 18:08 | US ---
EXAMINATION TYPE: US thyroid st tissue head/neck DATE OF EXAM: 11/30/2021 COMPARISON: 12/26/2017 CLINICAL HISTORY: 46-year-old female E04.9 Goiter. TECHNIQUE: Multiple sonographic images of the thyroid gland are obtained. FINDINGS: GLAND SIZE: Right Lobe: 4.8 x 1.2 x 1.4 cm Overall Parenchyma: homogenous Left Lobe: 5.0 x 0.8 x 1.5 cm Overall Parenchyma: homogeneous Isthmus Thickness: 0.3 cm NODULES RIGHT: # of nodules measured on right: 0 LEFT: # of nodules measured on left: 1 1. 0.6 X 0.4 x 0.5 cm, mid mid, solid or almost completely solid, mixed echogenicity including hypo echoic nodule, which is wider than tall, with smooth margins, without echogenic foci. ISTHMUS: # of nodules measured in the isthmus: 0 Bilateral neck scanned, no evidence of lymphadenopathy. IMPRESSION: Borderline sized thyroid gland. Solitary 6 mm TR4 nodule mid left thyroid lobe not seen back in 2018. Follow-up can be considered.
== END | disposition home or self-care (01) ==
LOC: RADCTMAIN 12:15
PROVIDERS: ATTEND Family Medicine
DX: R19.03 Right lower quadrant abdominal swelling, mass and lump (principal)
CPT/HCPCS: 76536; 74177; Q9967

== ENCOUNTER → 2023-04-30 | Outpatient (CLI) | payer BC ==
--- NOTE | 2023-05-01 15:53 | US ---
EXAMINATION TYPE: US transvaginal DATE OF EXAM: 04/30/2023 COMPARISON: NONE CLINICAL INDICATION: Female, 48 years old with history of N92.0 EXCESSIVE AND FREQUENT MENSTRUATION; heavy menses TECHNIQUE: Transvaginal (TV). Date of LMP: 04/12/23 EXAM MEASUREMENTS: Uterus: 15.9 x 11.1 x 11.6 cm Right Ovary: unable to visualize Left Ovary: unable to visualize 1. Uterus: Anteverted. Nabothian cysts measuring up to 7 mm. Large heterogeneous fibroid filling t he uterine fundus and body measuring 9.0 x 10.3 x 9.4cm 2. Endometrium: Obscured by the very large fibroid. 3. Right Ovary: Obscured by overlying bowel gas 4. Left Ovary: Obscured by overlying bowel gas 5. Bilateral Adnexa: wnl 6. Posterior cul-de-sac: wnl IMPRESSION: 1. Very large, heterogeneous fibroid filling the uterine fundus and body measuring up to 10.3 cm and also obscuring the endometrial stripe. If fibroid mapping is desired, female pelvic MRI can be consi dered. 2. Neither ovary could be visualized.
== END | disposition home or self-care (01) ==
LOC: RADUSWWP 15:26
PROVIDERS: ATTEND Family Medicine
DX: D25.9 Leiomyoma of uterus, unspecified (principal); N92.0 Excessive and frequent menstruation with regular cycle
CPT/HCPCS: 76830

== ENCOUNTER → 2023-06-05 | Outpatient (CLI) | payer BC ==
[2023-06-05 18:42] LABS: Basophils # (A) 0.04 X 10*3/uL (0.00-0.10); Basophils % (A) 0.5 %; Eosinophils # (A) 0.26 X 10*3/uL (0.04-0.35); Eosinophils % (A) 3.4 %; HCT 41.5 % (37.2-46.3); HGB 12.8 g/dL (12.0-15.0); Lymphocytes # (A) 1.39 X 10*3/uL (0.90-5.00); Lymphocytes % (A) 18.3 %; MCH 26.3 pg (27.0-32.0); MCHC 30.8 g/dL (32.0-37.0); MCV 85.4 FL (80.0-97.0); Mean Platelet Volume 9.2 FL (9.5-12.2); Monocytes % (A) 6.6 %; NRBC Per 100 WBC 0 X 10*3/uL (0.00-0.01); Neutrophils % (A) 70.9 %; Platelet Count 318 X 10*3/uL (140-440); RBC 4.86 X 10*6/uL (4.10-5.20); RDW 21.4 % (11.5-14.5); WBC 7.61 X 10*3/uL (4.50-10.00)
--- NOTE | 2023-06-05 18:48 | US ---
EXAMINATION TYPE: US thyroid st tissue head/neck DATE OF EXAM: 06/05/2023 COMPARISON: 11/30/21 CLINICAL INDICATION: Female, 48 years old with history of E04.9 GOITER; GLAND SIZE: Right Lobe: 5.6 x 1.2 x 1.6 cm Overall Parenchyma: homogeneous Left Lobe: 5.1 x 1.3 x 1.7 cm Overall Parenchyma: homogeneous Isthmus Thickness: 0.20 cm NODULES RIGHT: # of nodules measured on right: 0 LEFT: # of nodules measured on left: 1 1. 1.0 X 0.5 x 0.7 cm, mid mid, solid or almost completely solid, hypoechoic nodule, which is wider than tall, with smooth margins, without echogenic foci. TR 4 Prior size: 0.6 x 0.4 x 0.5 cm ISTHMUS: # of nodules measured in the isthmus: 0 Bilateral neck scanned, no evidence of lymphadenopathy. Subcentimeter nodule noted left interior lobe IMPRESSION: Moderately suspicious nodule left lobe thyroid. Follow-up in 1 year is recommended. 2017 ACR TI-RADS LEVEL: TR-RADS 4 - Moderately Suspicious: Follow if > 1 cm, FNA if > 1.5 cm *Highest TI-RADS level nodule reported
[2023-06-05 21:19] LABS: % Iron Saturation 20.47 (12.00-45.00); ALT 17 U/L (8-44); AST 16 U/L (13-35); Albumin 4.2 g/dL (3.8-4.9); Albumin/Globulin Ratio 1.56 Ratio (1.60-3.17); Alkaline Phosphatase 74 U/L (41-126); BUN/Creat Ratio 20.57 Ratio (12.00-20.00); Blood Urea Nitrogen 14.4 mg/dL (9.0-27.0); Calcium 8.8 mg/dL (8.7-10.3); Carbon Dioxide 20.3 mmol/L (21.6-31.8); Chloride 108 mmol/L (96-109); Globulin 2.7 g/dL (1.6-3.3); Glucose 65 mg/dL (70-110); Iron 96 UG/DL (50-170); Potassium 4.3 mmol/L (3.5-5.5); Sodium 140 mmol/L (135-145); Total Bilirubin <0.2 mg/dL (0.3-1.2); Total Iron Binding Capacity 469 UG/DL (228-460); Total Protein 6.9 g/dL (6.2-8.2)
== END | disposition home or self-care (01) ==
LOC: RADUSWWP 13:41
PROVIDERS: ATTEND Family Medicine
DX: Z13.220 Encounter for screening for lipoid disorders (principal); E04.1 Nontoxic single thyroid nodule; D50.9 Iron deficiency anemia, unspecified; R00.0 Tachycardia, unspecified; E55.9 Vitamin D deficiency, unspecified
CPT/HCPCS: 76536; 80053; 82306; 83540; 83550; 84443; 85025

== ENCOUNTER → 2024-08-24 | Outpatient (CLI) | payer OTHER ==
--- NOTE | 2024-08-24 13:03 | US ---
EXAMINATION TYPE: US thyroid st tissue head/neck DATE OF EXAM: 08/24/2024 COMPARISON: 06/05/23 CLINICAL INDICATION: Female, 49 years old with history of E04.1 NONTOXIC SINGLE THYROID NODULE; foll ow up TECHNIQUE: Grayscale and color Doppler imaging of the thyroid gland. FINDINGS: GLAND SIZE: Right Lobe: 5.1 x 1.2 x 0.9 cm Overall Parenchyma: homogeneous Left Lobe: 5.2 x 1.6 x 1.1 cm Overall Parenchyma: homogeneous Isthmus Thickness: 0.2 cm NODULES RIGHT: # of nodules measured on right: 0 LEFT: # of nodules measured on left: 1 1. 1.0 X 0.8 x 0.5 cm, mid mid, Prior size: 1.0 x 0.7 x 0.5 cm TIRADS Score: 4 TIRADS Category 4: Composition: Solid or almost completely solid (2 points). Echogenicity: Hypoechoic (2 points). Shape: Wider than tall (0 points). Margin: Smooth (0 points). Echogenic foci: None or large comet-tail artifacts (0 points) Recommendation: If >1.5cm: FNA; If >1cm: Follow up at 1,2, 3,5 years ISTHMUS: # of nodules measured in the isthmus: 0 Bilateral neck scanned, no evidence of lymphadenopathy. IMPRESSION: Left TI-RADS 4 nodule meets criteria for follow-up. Highest TI-RADS level nodule reported: 2017 ACR TI-RADS LEVEL: TI-RADS 4 - Moderately Suspicious: Follow if > 1 cm, FNA if > 1.5 cm TI-RADS assessment score and recommendation for follow-up based on appropriate scoring and treatment protocols. TR1 Benign No FNA TR2 Not suspicious No FNA TR3: If nodule size is ? 2.5 cm, FNA is recommended. If nodule size is ? 1.5 cm, follow-up imaging at 1, 3, and 5 years is recommended. TR4: If nodule size is ? 1.5 cm, FNA is recommended. If nodule size is ? 1.0 cm, follow-up imaging at 1, 2, 3, and 5 years is recommended. TR5: If nodule size is ? 1.0 cm, FNA is recommended. If nodule size is ? 0.5 cm, annual follow-up for up to 5 years is recommended. TR 1 thyroid nodules have a 0.3 % risk of malignancy. TR 2 thyroid nodules have a 1.5 % risk of malignancy. TR 3 thyroid nodules have a 4.8 % risk of malignancy. TR 4 thyroid nodules have a 9.1 % risk of malignancy. TR 5 thyroid nodules have a 35 % risk of malignancy. [email or web address] [email or web address], , 08/24/2024 1:01 PM
--- NOTE | 2024-08-24 13:41 | MM ---
Reason for Exam: Screening (asymptomatic). Patient History: Last menstrual period: 08/12/2024 Risk Values: Sharmaine 5 year model risk: 0.6%. NCI Lifetime model risk: 6.2%. Prior Study Comparison: No prior studies available for comparison. Tissue Density: The breasts are heterogeneously dense, which may obscure small masses. Findings: Analyzed By CAD. There is indeterminate calcifications upper outer aspect left breast and possible additional indeterminate calcifications upper aspect right breast. Overall Assessment: Incomplete: need additional imaging evaluation, BI-RAD 0 Management: Diagnostic Mammogram of both breasts. Spot magnification and 3-D true lateral views bilateral breasts. Patient should continue monthly self-breast exams. A clinical breast exam by your physician is recommended on an annual basis. This exam should not preclude additional follow-up of suspicious palpable abnormalities. Note on Sharmaine scores and lifetime risk: 1. A Sharmaine score greater than 3% is considered moderate risk. If this is the case, consider specialist referral to assess eligibility for a risk reducing agent. 2. If overall lifetime risk for the development of breast cancer is 20% or higher, the patient may qualify for future screening with alternating mammogram and breast MRI. [facility], , 08/24/2024 1:38 PM. Electronically signed and approved by: Colt Hernandez M.D.
[2024-08-24 21:12] LABS: HCT 42.1 % (37.2-46.3); HGB 13.2 g/dL (12.0-15.0); MCH 28.1 pg (27.0-32.0); MCHC 31.4 g/dL (32.0-37.0); MCV 89.6 FL (80.0-97.0); NRBC Per 100 WBC 0 X 10*3/uL (0.00-0.01); Platelet Count 340 X 10*3/uL (140-440); RBC 4.70 X 10*6/uL (4.10-5.20); RDW 12.8 % (11.5-14.5); WBC 6.50 X 10*3/uL (4.50-10.00)
[2024-08-24 21:13] LABS: Basophils # (A) 0.04 X 10*3/uL (0.00-0.10); Basophils % (A) 0.6 %; Eosinophils # (A) 0.11 X 10*3/uL (0.04-0.35); Eosinophils % (A) 1.7 %; Immature Grans, Automated 0.30 %; Lymphocytes # (A) 1.36 X 10*3/uL (0.90-5.00); Lymphocytes % (A) 20.9 %; Monocytes # (A) 0.40 X 10*3/uL (0.20-1.00); Monocytes % (A) 6.2 %; Neutrophils # (A) 4.57 X 10*3/uL (1.80-7.70); Neutrophils % (A) 70.3 %
[2024-08-24 21:28] LABS: Cholesterol 175.00 mg/dL (0.00-200.00); HDL Cholesterol 33.30 mg/dL (40.00-60.00); Iron 58 UG/DL (50-170); LDL Cholesterol,Calculated 121.7 mg/dL (0.0-131.0); Magnesium 2.2 mg/dL (1.5-2.4); Total Iron Binding Capacity 442 UG/DL (228-460); Triglycerides 100.00 mg/dL (0.00-149.00); VLDL Calculation 20.00 mg/dL (5.00-40.00)
[2024-08-24 21:29] LABS: ALT 14 U/L (8-44); AST 18 U/L (13-35); Albumin 4.3 g/dL (3.8-4.9); Albumin/Globulin Ratio 1.65 Ratio (1.60-3.17); Alkaline Phosphatase 66 U/L (41-126); Anion Gap 10.40 mmol/L (4.00-12.00); BUN/Creat Ratio 16.57 Ratio (12.00-20.00); Blood Urea Nitrogen 11.6 mg/dL (9.0-27.0); Calcium 9.1 mg/dL (8.7-10.3); Carbon Dioxide 21.6 mmol/L (21.6-31.8); Chloride 109 mmol/L (96-109); Globulin 2.6 g/dL (1.6-3.3); Glucose 91 mg/dL (70-110); Potassium 4.2 mmol/L (3.5-5.5); Sodium 141 mmol/L (135-145); T4, Free (Free Thyroxine) 1.08 ng/dL (0.80-1.80); Total Protein 6.9 g/dL (6.2-8.2); Vitamin B12 344.0 pg/mL (200.0-944.0)
== END | disposition home or self-care (01) ==
LOC: RADUSWWP 12:19
PROVIDERS: ATTEND Family Medicine
DX: Z12.31 Encounter for screening mammogram for malignant neoplasm of breast (principal); Z00.01 Encounter for general adult medical examination with abnormal findings; Z13.220 Encounter for screening for lipoid disorders; E04.1 Nontoxic single thyroid nodule; D50.9 Iron deficiency anemia, unspecified; R00.2 Palpitations; E53.8 Deficiency of other specified B group vitamins; E55.9 Vitamin D deficiency, unspecified; R92.333 Mammographic heterogeneous density, bilateral breasts
CPT/HCPCS: 76536; 77067; 80053; 80061; 82306; 82607; 82626; 83540; 83550; 83735; 83835; 84403; 84439; 84443; 84480; 85025